=== PATIENT | male | born 1930 | race Caucasian/White ===

== ENCOUNTER 2018-02-17 22:50 | Inpatient (IN) | payer MEDICARE, OTHER ==
[~2018-02-17] VITALS: Ht 167.6 cm; Wt 81.0 kg
[2018-02-18] VITALS (10 sets, daily range): BP systolic 155–179; BP diastolic 70–78; PULSE 52–67; RESP 13–20; TEMP 97.8–98.4; O2SAT 94–97
[2018-02-18] MEDS ORDERED: TERA5CAP3 PO (01:37)
[2018-02-18] MEDS ORDERED: CARV6.252 PO (01:37)
[2018-02-18] MEDS ORDERED: AMLO10TA2 PO (01:37)
[2018-02-18] MEDS ORDERED: PRAS10TA PO (01:37)
[2018-02-18] MEDS ORDERED: HYDR-3799 PO (01:37)
[2018-02-18] MEDS ORDERED: ASPI-183 PO (01:37)
[2018-02-18] MEDS ORDERED: SIMV20TA PO (01:37)
[2018-02-18] MEDS ORDERED: TEMAZEPAM 15 MG CAP PO PRN (02:15)
[2018-02-18] MEDS ORDERED: MORPHINE SULFATE 4 MG/ML INJ IV PUSH PRN (02:15)
[2018-02-18] MEDS ORDERED: MISCELLANEOUS NURSING INFORMATION XX SCH (02:15)
[2018-02-18] MEDS ORDERED: SODIUM CHLORIDE 0.9% FLUSH 10 ML FLUSH IV FLUSH PRN (02:15)
[2018-02-18] MEDS ORDERED: LACTULOSE SYRUP 20 GM/30 ML CUP PO PRN (02:15)
[2018-02-18] MEDS ORDERED: hydrALAZINE HCL 20 MG/ML VIAL IV PUSH PRN (02:15)
[2018-02-18] MEDS ORDERED: RESP: ALBUTEROL 2.5 MG/IPRATROPIUM 0.5 MG NEB (PRN) INH (02:15)
[2018-02-18] MEDS ORDERED: MAGNESIUM HYDROXIDE SUSP 30 ML CUP PO PRN (02:15)
[2018-02-18] MEDS ORDERED: BISACODYL 10 MG SUPP RECTAL PRN (02:15)
[2018-02-18] MEDS ORDERED: CHLORHEXIDINE GLUCONATE 2 % 1 PACK (2 CLOTHS) TOP PRN (02:15)
[2018-02-18] MEDS ORDERED: ONDANSETRON HCL 4 MG/2 ML VIAL IV PUSH PRN (02:15)
[2018-02-18] MEDS ORDERED: LABETALOL HCL 100 MG/20 ML VIAL IV PUSH PRN (02:15)
[2018-02-18] MEDS ORDERED: SENNOSIDES 8.6 MG TAB PO PRN (02:15)
[2018-02-18] MEDS ORDERED: ACETAMINOPHEN 325 MG TAB PO PRN (02:15)
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
[2018-02-18] MEDS: SODIUM CHLOR 0.9% 1000 ML INJ 1,000 ML IV SCH ×3 (02:47→23:12)
--- NOTE | 2018-02-18 02:56 | RADRPT ---
EXAM DATE/TIME: 02/18/2018 02:30 [place] COMPARISON: No previous studies available for comparison. INDICATIONS : Trauma, fall. RADIATION DOSE: 56.35 CTDIvol (mGy) MEDICAL HISTORY : Non-responsive. SURGICAL HISTORY : Non-responsive. ENCOUNTER: Initial ACUITY: 1 day PAIN SCALE: Non-responsive LOCATION: cranial TECHNIQUE: Multiple contiguous axial images were obtained of the head. Using automated exposure control and adj ustment of the mA and/or kV according to patient size, radiation dose was kept as low as reasonably a chievable to obtain optimal diagnostic quality images. DICOM format image data is available electro nically for review and comparison. FINDINGS: No intracranial hemorrhage or hematoma demonstrated. There is chronic-appearing low attenuation in th e periventricular white matter. A partly calcified extra-axial mass is seen left occipital lobe measu ring 16 x 26 mm in greatest transaxial dimension. No midline shift. Small right frontal scalp hematoma. The skull is intact. CONCLUSION: 1. No bleed or other acute intracranial abnormality demonstrated. 2. Partly calcified left occipital lobe extra-axial mass typical of a meningioma. No associated edema in the adjacent brain. No midline shift. 3. Right frontal scalp contusion. 4. Atrophy and chronic white matter changes. Schuyler Parekh MD on February 18, 2018 at 2:52 Board Certified Radiologist. This report was verified electronically.
[2018-02-18] MEDS: CHLORHEXIDINE GLUCONATE 2 % 1 PACK (2 CLOTHS) TOP SCH (04:00)
[2018-02-18] MEDS ORDERED: CARVEDILOL 6.25 MG TAB PO SCH (06:00)
[2018-02-18] MEDS ORDERED: hydrALAZINE HCL 50 MG TAB PO SCH (06:00)
[2018-02-18 06:59] LABS: AUTOMATED NEUTROPHIL # 3.6 TH/MM3 (1.8-7.7); BASOPHIL # 0.1 TH/MM3 (0-0.2); EOSINOPHIL # 0.2 TH/MM3 (0-0.4); EOSINOPHIL % 4.3 % (0.0-4.0); HEMATOCRIT 28.1 % (39.0-51.0); HEMOGLOBIN 9.4 GM/DL (13.0-17.0); LYMPH % 15.4 % (9.0-44.0); LYMPHOCYTE # 0.8 TH/MM3 (1.0-4.8); MEAN CELL VOLUME 91.4 FL (80.0-100.0); MEAN CORPUSCULAR HEMOGLOBIN 30.4 PG (27.0-34.0); MEAN CORPUSCULAR HGB CONC 33.3 % (32.0-36.0); MEAN PLATELET VOLUME 8.2 FL (7.0-11.0); MONO % 13.1 % (0.0-8.0); MONOCYTE # 0.7 TH/MM3 (0-0.9); NEUT % 66.2 % (16.0-70.0); PLATELET COUNT 195 TH/MM3 (150-450); RED BLOOD COUNT 3.07 MIL/MM3 (4.50-5.90); RED CELL DISTRIBUTION WIDTH 14.9 % (11.6-17.2); WHITE BLOOD COUNT 5.4 TH/MM3 (4.0-11.0)
[2018-02-18 07:08] LABS: INTERNATIONAL NORMALIZED RATIO 1.1 RATIO; PROTHROMBIN TIME - PATIENT 11.5 SEC (9.8-11.6)
[2018-02-18] MEDS ORDERED: RESP: ALBUTEROL 2.5 MG/3 ML NEB (PRN) NEB (07:15)
[2018-02-18] MEDS ORDERED: NITROGLYCERIN 2% OINT 1 GM PACKET TOPICAL PRN (07:15)
[2018-02-18] MEDS: hydrALAZINE HCL 25 MG TAB PO SCH ×2 (07:18→23:12)
[2018-02-18] MEDS: CARVEDILOL 6.25 MG TAB PO SCH ×2 (07:18→23:11)
[2018-02-18 07:26] LABS: ALBUMIN 3.1 GM/DL (3.4-5.0); AST (GOT) 17 U/L (15-37); BICARBONATE 21.3 MEQ/L (21.0-32.0); BLOOD UREA NITROGEN 26 MG/DL (7-18); CALCIUM 8.2 MG/DL (8.5-10.1); CHLORIDE 111 MEQ/L (98-107); CREATININE 1.73 MG/DL (0.60-1.30); GLOMERULAR FILTRATION RATE 38 ML/MIN (>89); GLUCOSE,RANDOM 88 MG/DL (74-106); SODIUM (NA) 143 MEQ/L (136-145)
[2018-02-18 07:28] LABS: ALT (GPT) 13 U/L (12-78); PHOSPHORUS 3.6 MG/DL (2.5-4.9)
[2018-02-18 07:30] LABS: ALKALINE PHOSPHATASE 81 U/L (45-117); TOTAL BILIRUBIN ADULT 0.4 MG/DL (0.2-1.0); TOTAL PROTEIN 6.2 GM/DL (6.4-8.2)
[2018-02-18] MEDS: PRAVASTATIN SOD 40 MG TAB PO SCH (09:00)
[2018-02-18] MEDS: DOCUSATE SODIUM 50 MG/SENNA 8.6 MG TAB PO SCH ×2 (09:00→21:00)
[2018-02-18] MEDS: SODIUM CHLORIDE 0.9% FLUSH 10 ML FLUSH IV FLUSH SCH ×2 (09:00→21:00)
[2018-02-18] MEDS ORDERED: FAMOTIDINE 20 MG/2 ML VIAL IV PUSH SCH (09:00)
[2018-02-18] MEDS: ASPIRIN 325 MG TAB PO SCH (09:00)
[2018-02-18] MEDS: PRASUGREL 10 MG TAB PO SCH (11:07)
[2018-02-18] MEDS: cloNIDine HCL 0.1 MG TAB PO PRN ×2 (11:07→17:14)
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
[2018-02-18] MEDS ORDERED: TERAZOSIN HCL 5 MG CAP PO SCH (21:00)
[2018-02-18] MEDS ORDERED: FAMOTIDINE 20 MG TAB PO SCH (21:00)
[2018-02-19] VITALS: BP 160/82; PULSE 54; RESP 16; TEMP 98.1; O2SAT 95
[2018-02-19] MEDS: CHLORHEXIDINE GLUCONATE 2 % 1 PACK (2 CLOTHS) TOP SCH (01:21)
[2018-02-19 04:00] VITALS: BP 168/74; PULSE 56; RESP 16; TEMP 97.3; O2SAT 94
[2018-02-19 06:26] LABS: AUTOMATED NEUTROPHIL # 3.6 TH/MM3 (1.8-7.7); BASOPHIL # 0.1 TH/MM3 (0-0.2); BASOPHIL % 1.1 % (0.0-2.0); EOSINOPHIL # 0.2 TH/MM3 (0-0.4); HEMATOCRIT 27.7 % (39.0-51.0); HEMOGLOBIN 9.5 GM/DL (13.0-17.0); LYMPH % 12.6 % (9.0-44.0); LYMPHOCYTE # 0.7 TH/MM3 (1.0-4.8); MEAN CELL VOLUME 91.6 FL (80.0-100.0); MEAN CORPUSCULAR HEMOGLOBIN 31.6 PG (27.0-34.0); MEAN CORPUSCULAR HGB CONC 34.5 % (32.0-36.0); MEAN PLATELET VOLUME 8.5 FL (7.0-11.0); MONO % 13.2 % (0.0-8.0); MONOCYTE # 0.7 TH/MM3 (0-0.9); NEUT % 69.1 % (16.0-70.0); PLATELET COUNT 182 TH/MM3 (150-450); RED BLOOD COUNT 3.02 MIL/MM3 (4.50-5.90); RED CELL DISTRIBUTION WIDTH 15.1 % (11.6-17.2); WHITE BLOOD COUNT 5.2 TH/MM3 (4.0-11.0)
[2018-02-19 06:57] LABS: INTERNATIONAL NORMALIZED RATIO 1.2 RATIO; PROTHROMBIN TIME - PATIENT 11.8 SEC (9.8-11.6)
[2018-02-19 07:31] LABS: ALT (GPT) 12 U/L (12-78); AST (GOT) 11 U/L (15-37); BICARBONATE 21.5 MEQ/L (21.0-32.0); BLOOD UREA NITROGEN 20 MG/DL (7-18); CALCIUM 8.2 MG/DL (8.5-10.1); CHLORIDE 114 MEQ/L (98-107); CREATININE 1.66 MG/DL (0.60-1.30); GLOMERULAR FILTRATION RATE 40 ML/MIN (>89); GLUCOSE,RANDOM 83 MG/DL (74-106); MAGNESIUM 1.9 MG/DL (1.5-2.5); SODIUM (NA) 145 MEQ/L (136-145)
[2018-02-19 07:39] LABS: ALKALINE PHOSPHATASE 78 U/L (45-117); FREE T4 1.27 NG/DL (0.76-1.46); TOTAL BILIRUBIN ADULT 0.5 MG/DL (0.2-1.0); TOTAL PROTEIN 6.1 GM/DL (6.4-8.2)
[2018-02-19 08:00] VITALS: BP 148/66; PULSE 57; RESP 18; TEMP 98; O2SAT 95
[2018-02-19 08:32] VITALS: O2SAT 94
[2018-02-19] MEDS: DOCUSATE SODIUM 50 MG/SENNA 8.6 MG TAB PO SCH (09:34)
[2018-02-19] MEDS: ASPIRIN 325 MG TAB PO SCH (09:34)
[2018-02-19] MEDS: hydrALAZINE HCL 25 MG TAB PO SCH (09:34)
[2018-02-19] MEDS: PRAVASTATIN SOD 40 MG TAB PO SCH (09:34)
[2018-02-19] MEDS: SODIUM CHLORIDE 0.9% FLUSH 10 ML FLUSH IV FLUSH SCH (09:35)
[2018-02-19] MEDS: CARVEDILOL 6.25 MG TAB PO SCH (09:35)
[2018-02-19] MEDS ORDERED: INFLUENZA VIRUS VACCINE (QUADRIVALENT) 0.5 ML SYR IM ONE (10:00)
[2018-02-19] MEDS: PRASUGREL 10 MG TAB PO SCH (10:06)
[2018-02-19 12:00] VITALS: BP 165/70; PULSE 56; RESP 18; TEMP 97.5; O2SAT 96
--- NOTE | 2018-02-19 12:16 | HHI.PR ---
Subjective Remarks 87-year-old very pleasant gentleman presented to emergency department at [facility] after he tripped and fall. The patient was getting his mail when he dropped one envelope on the floor, when he bent over he lost balance and fell on the floor hitting his head against the concrete pavement. He denies any loss of consciousness, nausea vomiting, or any associated symptoms. He has been taking aspirin and Prasugrel for coronary artery disease. The CT of the head obtained in the emergency department at [facility] show no bleed or other acute intracranial upper abnormality. Partially calcified left occipital lobe extra-axial mass typical of meningioma. 02-19 patient has been seen by neurosurgery and cleared by them. He is doing well. Wants to be discharged to home We will discharge to home today See med reconciliation Follow up with primary care physician this week Objective Vitals Vital Signs Date Time Temp Pulse Resp B/P (MAP) Pulse Ox O2 Delivery O2 Flow Rate FiO2 02/19/18 12:00 97.5 56 18 165/70 (101) 96 02/19/18 08:32 94 21 02/19/18 08:00 98.0 57 18 148/66 (93) 95 02/19/18 04:00 97.3 56 16 168/74 (105) 94 02/19/18 00:00 98.1 54 16 160/82 (108) 95 02/18/18 20:30 96 02/18/18 20:00 97.8 53 16 155/70 (98) 95 02/18/18 18:00 56 02/18/18 16:00 97.8 58 13 175/75 (108) 94 02/18/18 16:00 56 02/18/18 14:00 52 I/O 02/18/18 02/18/18 02/18/18 02/19/18 02/19/18 02/19/18 06:59 14:59 22:59 06:59 14:59 22:59 Intake Total 580 ml Balance 580 ml Intake Oral 580 ml # Voids 1 4 Result Diagram: 02/19/18 0534 02/19/18 0534 Other Results Laboratory Tests Test 02/18/18 01:15 02/18/18 06:17 02/19/18 05:34 Nasal Screen MRSA (PCR) MRSA NOT DETECTED White Blood Count 5.4 TH/MM3 5.2 TH/MM3 Red Blood Count 3.07 MIL/MM3 3.02 MIL/MM3 Hemoglobin 9.4 GM/DL 9.5 GM/DL Hematocrit 28.1 % 27.7 % Mean Corpuscular Volume 91.4 FL 91.6 FL Mean Corpuscular Hemoglobin 30.4 PG 31.6 PG Mean Corpuscular Hemoglobin Concent 33.3 % 34.5 % Red Cell Distribution Width 14.9 % 15.1 % Platelet Count 195 TH/MM3 182 TH/MM3 Mean Platelet Volume 8.2 FL 8.5 FL Neutrophils (%) (Auto) 66.2 % 69.1 % Lymphocytes (%) (Auto) 15.4 % 12.6 % Monocytes (%) (Auto) 13.1 % 13.2 % Eosinophils (%) (Auto) 4.3 % 4.0 % Basophils (%) (Auto) 1.0 % 1.1 % Neutrophils # (Auto) 3.6 TH/MM3 3.6 TH/MM3 Lymphocytes # (Auto) 0.8 TH/MM3 0.7 TH/MM3 Monocytes # (Auto) 0.7 TH/MM3 0.7 TH/MM3 Eosinophils # (Auto) 0.2 TH/MM3 0.2 TH/MM3 Basophils # (Auto) 0.1 TH/MM3 0.1 TH/MM3 CBC Comment DIFF FINAL DIFF FINAL Differential Comment Prothrombin Time 11.5 SEC 11.8 SEC Prothromb Time International Ratio 1.1 RATIO 1.2 RATIO Activated Partial Thromboplast Time 29.2 SEC 28.9 SEC Blood Urea Nitrogen 26 MG/DL 20 MG/DL Creatinine 1.73 MG/DL 1.66 MG/DL Random Glucose 88 MG/DL 83 MG/DL Total Protein 6.2 GM/DL 6.1 GM/DL Albumin 3.1 GM/DL 3.0 GM/DL Calcium Level 8.2 MG/DL 8.2 MG/DL Phosphorus Level 3.6 MG/DL 3.0 MG/DL Magnesium Level 2.0 MG/DL 1.9 MG/DL Alkaline Phosphatase 81 U/L 78 U/L Aspartate Amino Transf (AST/SGOT) 17 U/L 11 U/L Alanine Aminotransferase (ALT/SGPT) 13 U/L 12 U/L Total Bilirubin 0.4 MG/DL 0.5 MG/DL Sodium Level 143 MEQ/L 145 MEQ/L Potassium Level 3.5 MEQ/L 3.7 MEQ/L Chloride Level 111 MEQ/L 114 MEQ/L Carbon Dioxide Level 21.3 MEQ/L 21.5 MEQ/L Anion Gap 11 MEQ/L 10 MEQ/L Estimat Glomerular Filtration Rate 38 ML/MIN 40 ML/MIN Free Thyroxine 1.27 NG/DL Thyroid Stimulating Hormone 3rd Gen 3.530 uIU/ML Imaging Last Impressions Head CT 02/18/18 0000 Signed Impressions: Service Date/Time: Sunday, February 18, 2018 02:30 - CONCLUSION: 1. No bleed or other acute intracranial abnormality demonstrated. 2. Partly calcified left occipital lobe extra-axial mass typical of a meningioma. No associated edema in the adjacent brain. No midline shift. 3. Right frontal scalp contusion. 4. Atrophy and chronic white matter changes. Schuyler Parekh MD Objective Remarks GENERAL: Awake alert and oriented 3 very talkative and cooperative-- answering all questions appropriately SKIN: Warm and dry. HEAD: Atraumatic. Normocephalic. EYES: Pupils equal and round. No scleral icterus. No injection or drainage. Extraocular muscles intact ENT: No nasal bleeding or discharge. Mucous membranes pink and moist. Tongue is midline supple NECK: Trachea midline. No JVD. CARDIOVASCULAR: Regular rate and rhythm. S1-S2 no S3-S4 RESPIRATORY: No accessory muscle use. Clear to auscultation. Breath sounds equal bilaterally. GASTROINTESTINAL: Abdomen soft, non-tender, nondistended. Hepatic and splenic margins not palpable. MUSCULOSKELETAL: Extremities without clubbing, cyanosis, or edema. No obvious deformities. NEUROLOGICAL: Awake and alert. No obvious cranial nerve deficits. Motor grossly within normal limits. Five out of 5 muscle strength in the arms and legs. Normal speech. PSYCHIATRIC: Appropriate mood and affect; insight and judgment normal. Procedures None Medications and IVs Current Medications Amlodipine Besylate (Norvasc) 10 mg DAILY PO Last administered on 02/19/18at 09: 34; Start 02/18/18 at 09:00 Carvedilol (Coreg) 6.25 mg BID PO Last administered on 02/19/18at 09:35; Start 02/18/18 at 09:00 Hydralazine HCl (Apresoline) 50 mg BID PO Last administered on 02/19/18 09:34 ; Start 02/18/18 at 09:00 Terazosin HCl (Hytrin) 5 mg HS PO Last administered on 02/18/18at 23:11; Start 02/18/18 at 21:00 Pravastatin Sodium (Pravachol) 40 mg DAILY PO Last administered on 02/19/18at 09 :34; Start 02/18/18 at 09:00 Labetalol HCl (Trandate Inj) 10 mg Q4H PRN IV PUSH SBP>140, DBP>90 Last administered on 02/18/18at 04:03; Start 02/18/18 at 02:15; Stop 02/18/18 at 07:15 ; Status DC Hydralazine HCl (Apresoline Inj) 20 mg Q4H PRN IV PUSH SBP>140, DBP>90 Last administered on 02/18/18at 02:23; Start 02/18/18 at 02:15; Stop 02/18/18 at 07:15 ; Status DC Sodium Chloride 1,000 ml @ 84 mls/hr [id number] IV Last administered on at 02:47; Start 02/18/18 at 02:07 Sodium Chloride (NS Flush) 2 ml UNSCH PRN IV FLUSH FLUSH AFTER USING IV ACCESS ; Start 02/18/18 at 02:15 Sodium Chloride (NS Flush) 2 ml BID IV FLUSH Last administered on 02/19/18at 09: 35; Start 02/18/18 at 09:00 Acetaminophen (Tylenol) 650 mg Q6H PRN PO PAIN 1-5 AND/OR FEVER >101F; Start at 02:15 Morphine Sulfate (Morphine Inj) 2 mg Q2H PRN IV PUSH PAIN SCALE 6 TO 10; Start 02/18/18 at 02:15 Famotidine (Pepcid Inj) 20 mg Q12HR IV PUSH ; Start 02/18/18 at 09:00; Stop at 09:00; Status DC Ondansetron HCl (Zofran Inj) 4 mg Q6H PRN IV PUSH NAUSEA OR VOMITING; Start at 02:15 Temazepam (Restoril) 15 mg HS PRN PO INSOMNIA; Start 02/18/18 at 02:15 Albuterol/ Ipratropium (Duoneb Neb) 1 ampule Q2HR NEB PRN INH WHEEZING; Start 02/18/18 at 02:15; Stop 02/18/18 at 07:11; Status DC Miscellaneous Information 1 [id number] XX ; Start 02/18/18 at 02:15 Chlorhexidine Gluconate (Chlorhexidine 2% Cloth) 3 pack Taper DAILY@04 TOP Last administered on 02/18/18at 04:00; Start 02/18/18 at 04:00; Stop 02/14/19 at 03:59 Chlorhexidine Gluconate (Chlorhexidine 2% Cloth) 3 pack UNSCH PRN TOP HYGIENIC CARE; Start 02/18/18 at 02:15 Senna/Docusate Sodium (Aleah-Colace) 1 tab BID PO Last administered on at 09:34; Start 02/18/18 at 09:00 Magnesium Hydroxide (Milk Of Magnesia Liq) 30 ml Q12H PRN PO Mild constipation ; Start 02/18/18 at 02:15 Sennosides (Senokot) 17.2 mg Q12H PRN PO Moderate constipation; Start 02/18/18 at 02:15 Bisacodyl (Dulcolax Supp) 10 mg DAILY PRN RECTAL SEVERE CONSITIPATION; Start at 02:15 Lactulose (Lactulose Liq) 30 ml DAILY PRN PO SEVERE CONSITIPATION; Start at 02:15 Aspirin (Aspirin) 325 mg DAILY PO Last administered on 02/19/18at 09:34; Start 02/18/18 at 09:00 Prasugrel (Effient) 10 mg DAILY PO Last administered on 02/19/18at 10:06; Start 02/18/18 at 09:00 Hydralazine HCl (Apresoline) 50 mg NOW PO Last administered on 02/18/18at 05:55 ; Start 02/18/18 at 06:00; Stop 02/18/18 at 08:00; Status DC Carvedilol (Coreg) 6.25 mg NOW PO Last administered on 02/18/18at 05:56; Start 02/18/18 at 06:00; Stop 02/18/18 at 07:30; Status DC Amlodipine Besylate (Norvasc) 10 mg NOW PO Last administered on 02/18/18at 05:55 ; Start 02/18/18 at 06:00; Stop 3/30/18 at 07:20; Status DC Albuterol Sulfate (Albuterol Neb) 2.5 mg Q2HR NEB PRN NEB dyspnea; Start at 07:15 Nitroglycerin (Nitroglycerin 2% Oint) 2 inch Q6H PRN TOPICAL SBP>160, DBP>90 Last administered on 02/18/18at 16:00; Start 02/18/18 at 07:15 Famotidine (Pepcid) 20 mg HS PO Last administered on 02/18/18at 23:12; Start at 21:00 Influenza Virus Vaccine (Flu (Quadrivalent) Vaccine Inj) 0.5 ml ONCE ONCE IM Last administered on 02/19/18at 10:08; Start 02/19/18 at 10:00; Stop 02/19/18 at 10:01; Status DC Clonidine (Catapres) 0.1 mg Q4H PRN PO SBP>160, DBP>90 Last administered on at 17:14; Start 02/18/18 at 09:00 A/P Assessment and Plan Traumatic brain injury -Concussion -Frontal contusion -Coags profile stat -Repeat CT has -PT and OT as tolerated Hypertension -Norvasc -Hydralazine -Coreg BPH -Terazosin Coronary artery disease -Continue aspirin and Effient -Continue Coreg DVT GI prophylaxis -Lucio's and SCDs -Early aggressive mobilization -Pepcid Has been cleared by neurosurgery. Can be discharged home to follow-up with primary care physician in 1 week Wants to be discharged home we will discharge to home today Discharge Planning Discharge to home today has been cleared by neurosurgery Zheng Thomas DO Feb 19, 2018 12:15
--- NOTE | 2018-02-19 12:22 | HHI.DS ---
Discharge Summary Admission Date Feb 18, 2018 at 01:05 Discharge Date: Feb 19, 2018 Admitting Diagnosis (1) TBI (traumatic brain injury) ICD Code: S06.9X9A - Unspecified intracranial injury with loss of consciousness of unspecified duration, initial encounter Diagnosis: Principal (2) Closed TBI (traumatic brain injury) ICD Code: S06.9X9A - Unspecified intracranial injury with loss of consciousness of unspecified duration, initial encounter Diagnosis: Principal (3) Mild TBI ICD Code: S06.9X9A - Unspecified intracranial injury with loss of consciousness of unspecified duration, initial encounter (4) Status post fall ICD Code: Z91.81 - History of falling Diagnosis: Principal (5) Hypertension ICD Code: I10 - Essential (primary) hypertension Diagnosis: Secondary (6) Hyperlipidemia ICD Code: E78.5 - Hyperlipidemia, unspecified Diagnosis: Secondary (7) CAD (coronary artery disease) ICD Code: I25.10 - Atherosclerotic heart disease of [place] coronary artery without angina pectoris Diagnosis: Secondary (8) Anticoagulant long-term use ICD Code: Z79.01 - director sales and marketing (current) use of anticoagulants Diagnosis: Principal (9) Renal insufficiency ICD Code: N28.9 - Disorder of kidney and ureter, unspecified Diagnosis: Secondary Procedures None Brief History - From Admission 87-year-old very pleasant gentleman presented to emergency department at [facility] after he tripped and fall. The patient was getting his mail when he dropped one envelope on the floor, when he bent over he lost balance and fell on the floor hitting his head against the concrete pavement. He denies any loss of consciousness, nausea vomiting, or any associated symptoms. He has been taking aspirin and Prasugrel for coronary artery disease. The CT of the head obtained in the emergency department at [facility] show no bleed or other acute intracranial upper abnormality. Partially calcified left occipital lobe extra-axial mass typical of meningioma. CBC/BMP: 02/19/18 0534 02/19/18 0534 Significant Findings Laboratory Tests Test 02/18/18 01:15 02/18/18 06:17 02/19/18 05:34 Red Blood Count 3.07 MIL/MM3 (4.50-5.90) 3.02 MIL/MM3 (4.50-5.90) Hemoglobin 9.4 GM/DL (13.0-17.0) 9.5 GM/DL (13.0-17.0) Hematocrit 28.1 % (39.0-51.0) 27.7 % (39.0-51.0) Monocytes (%) (Auto) 13.1 % (0.0-8.0) 13.2 % (0.0-8.0) Eosinophils (%) (Auto) 4.3 % (0.0-4.0) Lymphocytes # (Auto) 0.8 TH/MM3 (1.0-4.8) 0.7 TH/MM3 (1.0-4.8) Blood Urea Nitrogen 26 MG/DL (7-18) 20 MG/DL (7-18) Creatinine 1.73 MG/DL (0.60-1.30) 1.66 MG/DL (0.60-1.30) Total Protein 6.2 GM/DL (6.4-8.2) 6.1 GM/DL (6.4-8.2) Albumin 3.1 GM/DL (3.4-5.0) 3.0 GM/DL (3.4-5.0) Calcium Level 8.2 MG/DL (8.5-10.1) 8.2 MG/DL (8.5-10.1) Chloride Level 111 MEQ/L (98-107) 114 MEQ/L (98-107) Estimat Glomerular Filtration Rate 38 ML/MIN (>89) 40 ML/MIN (>89) Prothrombin Time 11.8 SEC (9.8-11.6) Aspartate Amino Transf (AST/SGOT) 11 U/L (15-37) Imaging Last Impressions Head CT 02/18/18 0000 Signed Impressions: Service Date/Time: Sunday, February 18, 2018 02:30 - CONCLUSION: 1. No bleed or other acute intracranial abnormality demonstrated. 2. Partly calcified left occipital lobe extra-axial mass typical of a meningioma. No associated edema in the adjacent brain. No midline shift. 3. Right frontal scalp contusion. 4. Atrophy and chronic white matter changes. Schuyler Parekh MD PE at Discharge GENERAL: Awake alert and oriented 3 very talkative and cooperative-- answering all questions appropriately SKIN: Warm and dry. HEAD: Atraumatic. Normocephalic. EYES: Pupils equal and round. No scleral icterus. No injection or drainage. Extraocular muscles intact ENT: No nasal bleeding or discharge. Mucous membranes pink and moist. Tongue is midline supple NECK: Trachea midline. No JVD. CARDIOVASCULAR: Regular rate and rhythm. S1-S2 no S3-S4 RESPIRATORY: No accessory muscle use. Clear to auscultation. Breath sounds equal bilaterally. GASTROINTESTINAL: Abdomen soft, non-tender, nondistended. Hepatic and splenic margins not palpable. MUSCULOSKELETAL: Extremities without clubbing, cyanosis, or edema. No obvious deformities. NEUROLOGICAL: Awake and alert. No obvious cranial nerve deficits. Motor grossly within normal limits. Five out of 5 muscle strength in the arms and legs. Normal speech. PSYCHIATRIC: Appropriate mood and affect; insight and judgment normal. Hospital Course 87-year-old very pleasant gentleman presented to emergency department at [facility] after he tripped and fall. The patient was getting his mail when he dropped one envelope on the floor, when he bent over he lost balance and fell on the floor hitting his head against the concrete pavement. He denies any loss of consciousness, nausea vomiting, or any associated symptoms. He has been taking aspirin and Prasugrel for coronary artery disease. The CT of the head obtained in the emergency department at [facility] show no bleed or other acute intracranial upper abnormality. Partially calcified left occipital lobe extra-axial mass typical of meningioma. 3 patient has been seen by neurosurgery and cleared by them. He is doing well. Wants to be discharged to home We will discharge to home today See med reconciliation Follow up with primary care physician this week Pt Condition on Discharge: Good Discharge Disposition: Discharge Home Discharge Time: <= 30 minutes Discharge Instructions DIET: Follow Instructions for: Heart Healthy Diet Speech Therapy-Diet Recommends: Regular Activities you can perform: Regular-No Restrictions Activities to Avoid: Contact Sports Follow up Referrals: PCP Follow-up - 1 Week Continued Medications: Amlodipine (Amlodipine) 10 Mg Tab 10 MG PO DAILY for Blood Pressure Management, #30 TAB 0 Refills Aspirin (Aspirin) 325 Mg Tab 325 MG PO DAILY, #30 TAB 0 Refills Carvedilol (Carvedilol) 6.25 Mg Tab 6.25 MG PO BID, #60 TAB 0 Refills Hydralazine HCl (Hydralazine HCl) 25 Mg Tablet 50 MG PO BID for Blood Pressure Management, #60 TAB 0 Refills Prasugrel (Effient) 10 Mg Tab 10 MG PO DAILY for Blood Clot Prevention, #30 TAB 0 Refills Simvastatin (Simvastatin) 20 Mg Tab 20 MG PO DAILY for Cholesterol Management, #30 TAB 0 Refills Terazosin (Terazosin) 5 Mg Cap 5 MG PO HS, #30 CAP 0 Refills Zheng Thomas DO Feb 19, 2018 12:22
[2018-02-19 12:59] LABS: HEMOGLOBIN A1C 5.3 % (4.3-6.0)
== END 2018-02-19 16:07 | disposition home or self-care (01) | DRG 90 ==
LOC: N03B 02-18 01:05 → N05A 02-18 19:55
PROVIDERS: ADMIT Hospitalist; ATTEND Hospitalist
DX: S06.0X9A Concussion with loss of consciousness of unspecified duration, initial encounter (principal); W01.0XXA Fall on same level from slipping, tripping and stumbling without subsequent striking against object, initial encounter; I10 Essential (primary) hypertension; N40.0 Benign prostatic hyperplasia without lower urinary tract symptoms; I25.10 Atherosclerotic heart disease of native coronary artery without angina pectoris; Z79.02 Long term (current) use of antithrombotics/antiplatelets; I25.2 Old myocardial infarction; N28.9 Disorder of kidney and ureter, unspecified; H91.90 Unspecified hearing loss, unspecified ear; D32.9 Benign neoplasm of meninges, unspecified; Z91.81 History of falling; E78.5 Hyperlipidemia, unspecified; Z96.652 Presence of left artificial knee joint; Z23 Encounter for immunization
CPT/HCPCS: 70450; 80053; 83036; 83735; 84100; 84439; 84443; 85025; 85610; 85730; 87641; 90686; 94150; J0360; J7030; Q2038